=== PATIENT | male | born 1950 | race African-American/Black ===

== ENCOUNTER 2024-04-07 12:29 | Inpatient (IN) | payer MEDICARE, MEDICAID ==
[~2024-04-07] VITALS: Ht 167.6 cm; Wt 54.9 kg
[2024-04-07] MEDS: SODIUM CHLORIDE 0.9% 1,000 ML IV ONE (14:02)
[2024-04-07] MEDS: LORAZEPAM 2MG/ML INJ IV ONE ×2 (14:15)
[2024-04-07 15:09] LABS: HEMATOCRIT. 38.9 % (42.0-52.0); HEMOGLOBIN. 12.4 g/dL (14.0-18.0); MEAN CORPUSCULAR HEMOGLOBIN 28.4 pg (28.0-32.0); MEAN CORPUSCULAR HGB CONC 31.9 g/dL (31.0-37.0); MEAN CORPUSCULAR VOLUME 89.2 fL (80.0-94.0); MEAN PLATELET VOLUME 10.8 fl (7.4-10.4); PLATELET 180 x1000/uL (130-400); RED BLOOD CELL COUNT 4.36 mill/uL (4.7-6.1); RED CELL DISTRIBUTION WIDTH 15.5 % (11.6-14.6); WHITE BLOOD COUNT 12.1 x1000/uL (4.5-11.0)
[2024-04-07 15:11] LABS: DIFFERENTIAL COMMENT 1
[2024-04-07 15:14] LABS: CARBON DIOXIDE 29 mEq/L (21-32); CHLORIDE 104 mEq/L (98-107); INR 0.9; PARTIAL THROMBOPLASTIN TIME 25.2 sec (23.4-31.0); PROTHROMBIN TIME 10.6 sec (9.6-11.0); SODIUM 140 mEq/L (136-145)
[2024-04-07 15:15] LABS: CALCIUM 9.6 mg/dL (8.7-10.4)
[2024-04-07 15:20] LABS: GLUCOSE 79 mg/dL (70-105); UREA NITROGEN BLOOD 19 mg/dL (9-23)
[2024-04-07 15:21] LABS: ALANINE AMINOTRANSFERASE 23 IU/L (10-49)
[2024-04-07 15:22] LABS: ALBUMIN 4.4 g/dL (3.2-4.8); ASPARTATE AMINOTRANSFERASE 34 IU/L (<34); BILIRUBIN DIRECT 0.2 mg/dL (<=3.0); BILIRUBIN TOTAL 0.7 mg/dL (0.1-1.0); PROTEIN TOTAL 8.4 g/dL (6.0-8.3)
[2024-04-07 15:25] LABS: TROPONIN I HIGH SENSITIVITY 5 ng/L (3.0-53)
[2024-04-07 16:08] LABS: CLARITY URINE CLEAR (CLEAR); COLOR URINE YELLOW (YELLOW); GLUCOSE URINE NEGATIVE (NEGATIVE); KETONES URINE NEGATIVE (NEGATIVE); LEUKOCYTE ESTERASE URINE 2+ (NEGATIVE); NITRITE URINE NEGATIVE (NEGATIVE); OCCULT BLOOD URINE NEGATIVE (NEGATIVE); PROTEIN URINE NEGATIVE (NEGATIVE); SPECIFIC GRAVITY URINE 1.011 (1.005-1.030); UROBILINOGEN URINE 0.2 E.U./dL (0.2-1.0)
[2024-04-07 17:13] LABS: RBC URINE 0-2 /hpf (0-2)
[2024-04-07 17:14] LABS: BACTERIA URINE TRACE; SQUAMOUS EPITHELIAL CELL URINE FEW /lpf (RARE/1+)
[2024-04-07] MEDS: LEVOFLOXACIN 750MG PREMIX 150 ML IV ONE (18:06)
[2024-04-07 18:12] LABS: ANISOCYTOSIS 1+; PLATELET ESTIMATE NORMAL
[2024-04-07 20:00] VITALS: BP 168/78; PULSE 97; RESP 18; TEMP 36.9474; O2SAT 97
[2024-04-07] MEDS ORDERED: ACETAMINOPHEN 325MG TABLET PO PRN ×2 (23:15)
[2024-04-07] MEDS ORDERED: CLONIDINE 0.1MG TABLET PO PRN (23:15)
[2024-04-08] VITALS (8 sets, daily range): BP systolic 117–215; BP diastolic 59–172; PULSE 19–101; RESP 16–19; TEMP 25.5576–36.9474; O2SAT 96–100
[2024-04-08] MEDS: SODIUM CHLORIDE 0.9% 3ML FLUSH IVF SCH (06:19)
[2024-04-08] MEDS: LEVOFLOXACIN 750MG PREMIX 150 ML IV SCH (17:08)
[2024-04-08] MEDS ORDERED: LEVOFLOXACIN 500MG PREMIX 100 ML IV SCH (21:00)
[2024-04-09 04:00] VITALS: BP 153/80; PULSE 79; RESP 18; TEMP 36.3918; O2SAT 99
[2024-04-09 12:00] VITALS: BP 138/79; PULSE 79; RESP 16; TEMP 37.05852; O2SAT 100
[2024-04-09 16:00] VITALS: BP 124/70; PULSE 91; RESP 18; TEMP 36.22512; O2SAT 98
[2024-04-09 20:00] VITALS: BP 116/63; PULSE 87; RESP 18; TEMP 36.33624; O2SAT 97
[2024-04-10] VITALS (7 sets, daily range): BP systolic 104–126; BP diastolic 61–68; PULSE 65–96; RESP 18; TEMP 35.94732–37.16964; O2SAT 95–99
[2024-04-10 11:05] LABS: HEMATOCRIT 38.4 % (42.0-52.0); HEMOGLOBIN 12.3 g/dL (14.0-18.0); MEAN CORPUSCULAR HEMOGLOBIN 28.2 pg (28.0-32.0); MEAN CORPUSCULAR HGB CONC 32.2 g/dL (31.0-37.0); MEAN CORPUSCULAR VOLUME 87.7 fL (80.0-94.0); PLATELET 183 x1000/uL (130-400); RED BLOOD CELL COUNT 4.37 mill/uL (4.7-6.1); RED CELL DISTRIBUTION WIDTH 15.1 % (11.6-14.6); WHITE BLOOD COUNT 6.9 x1000/uL (4.5-11.0)
== END 2024-04-10 21:10 | disposition home or self-care (01) | DRG 871 ==
LOC: ER 12:35 → EDBEDREQ 16:45 → EDBEDREQTM 18:11 → 5WST 19:57 → 7WST 04-08 18:17
PROVIDERS: ADMIT Internal Medicine; ATTEND Internal Medicine
DX: A41.9 Sepsis, unspecified organism (principal); G93.41 Metabolic encephalopathy; N39.0 Urinary tract infection, site not specified; G40.909 Epilepsy, unspecified, not intractable, without status epilepticus; G80.9 Cerebral palsy, unspecified; Z86.73 Personal history of transient ischemic attack (TIA), and cerebral infarction without residual deficits; Z99.3 Dependence on wheelchair; Z88.0 Allergy status to penicillin
CPT/HCPCS: 36415; 71045; 80048; 80076; 81003; 83735; 83880; 84484; 85025; 85027; 93005; 99285; J1956; J2060; J7030